=== PATIENT | male | born 1975 | race Caucasian/White ===

== ENCOUNTER 2016-05-16 16:26 | Outpatient (CLI) | payer OTHER | END 2016-05-16 16:27 | disposition home or self-care (01) | DX: Z01.89 Encounter for other specified special examinations (principal) ==

== ENCOUNTER 2023-05-21 14:24 | Emergency (ER) | payer MEDICAID, OTHER ==
[2023-05-21 14:49] LABS: BASOPHILS # (AUTO) 0.1 10^3/uL (0.0-0.1); BASOPHILS % (AUTO) 0.9 %; EOSINOPHILS % (AUTO) 0.4 %; HGB - HEMOGLOBIN 14.3 g/dL (14.0-18.0); LYMPHOCYTES # (AUTO) 2.1 10^3/uL (1.5-3.5); LYMPHOCYTES % (AUTO) 32.1 %; MEAN CORPUSCULAR HEMOGLOBIN 34.8 pg (27.0-31.0); MEAN CORPUSCULAR VOLUME 102.2 fL (80.0-94.0); MONOCYTES # (AUTO) 0.6 10^3/uL (0.0-1.0); MONOCYTES % (AUTO) 8.7 %; NEUTROPHILS # (AUTO) 3.8 10^3/uL (1.5-6.6); NEUTROPHILS % (AUTO) 57.5 %; PLT - PLATELET COUNT 254 10^3/uL (130-450); RED BLOOD COUNT 4.11 10^6/uL (4.70-6.10); RED CELL DISTRIBUTION WIDTH 13.2 % (12.0-15.0); WHITE BLOOD COUNT 6.7 x10^3/uL (4.8-10.8)
[2023-05-21 15:03] LABS: ALBUMIN 3.7 g/dL (3.2-5.5); BILIRUBIN,TOTAL 1.2 mg/dL (0.2-1.0); CALCIUM 8.8 mg/dL (8.5-10.3); CREATININE 0.8 mg/dL (0.6-1.3); POTASSIUM 3.7 mmol/L (3.5-4.5); TOTAL PROTEIN 7.3 g/dL (6.4-8.9)
[2023-05-21 15:52] LABS: BILIRUBIN,URINE NEGATIVE (NEGATIVE); GLUCOSE, URINE (UA) NEGATIVE (NEGATIVE); KETONES,URINE (UA) NEGATIVE (NEGATIVE); LEUKOCYTE ESTERASE, URINE NEGATIVE (NEGATIVE); NITRITE,URINE NEGATIVE (NEGATIVE); OCCULT BLOOD,URINE NEGATIVE (NEGATIVE); PH,URINE 7.5 PH (5.0-7.5); PROTEIN,URINE NEGATIVE (NEGATIVE); UROBILINOGEN,URINE 4 E.U./dL (NORMAL)
[2023-05-21 15:53] LABS: CLARITY,URINE CLEAR (CLEAR)
[2023-05-21] MEDS ORDERED: iohexoL-300 100 ML VIAL ONE (16:44)
[2023-05-21] MEDS: SODIUM CHLORIDE 0.9% 1,000 ML IV ONE (17:02)
[2023-05-21] MEDS: ONDANSETRON 4 MG/2 ML VIAL IVP STA (17:05)
[2023-05-21] MEDS: iohexoL-300 100 ML VIAL IVP ONE (17:55)
--- NOTE | 2023-05-21 18:14 | CT Report ---
PROCEDURE: Abdomen/Pelvis W INDICATIONS: RUQ pain CONTRAST: 100ml omni 300 TECHNIQUE: After the administration of intravenous contrast, a CT scan of the abdomen and pelvis was performed. Images were recorded and evaluated at appropriate window settings. Reformats: coronal and sagittal. F or radiation dose reduction, the following was used: automated exposure control, adjustment of mA and /or kV according to patient size. COMPARISON: None. FINDINGS: Image quality: Diagnostic. Lower chest: Please see same day CT. Liver: Severe hepatic steatosis. 1.5 cm lesion with discontinuous, peripheral arterial enhancement in segment 2, presumably a hemangioma. Smooth liver contour. Patent portal vein. Gallbladder and biliary tree: No radiopaque stones or wall thickening. No biliary dilation. Spleen: No splenomegaly. Pancreas: No pancreatic ductal dilation. No fat stranding. Adrenals: No adrenal nodule. Kidneys and ureters: No hydronephrosis. No renal cystic lesion which requires follow up. No solid mas s. Stomach, bowel and peritoneum: No bowel distension. No pathologic free fluid. Normal appendix. Coloni c diverticulosis without evidence of diverticulitis. Lymph nodes: Borderline enlarged gastrohepatic lymph nodes, largest measuring 1 cm short axis (series 2, image 36). Vessels: No infrarenal aortic aneurysm. PELVIS Reproductive organs: Unremarkable. Bladder: No abnormal wall thickening, accounting for underdistention. Pelvic lymph nodes: No pelvic adenopathy by size criteria. Bones: No aggressive osseous abnormality. Other: No significant ventral or inguinal hernia. IMPRESSION: No gallbladder or pancreatic pathology. Marked hepatic steatosis, probably steatohepatitis. Prominent gastrohepatic lymph nodes, possibly reactive to liver disease or gastritis. Recommend follo w-up in 2-3 months to ensure resolution, otherwise further workup with GI should be considered. 1.5 cm liver lesion with imaging properties favoring a benign hemangioma. However, given underlying l iver disease, further evaluation with outpatient MRI is recommended (liver mass protocol). Reviewed by: Luis Angel Pierson MD on 05/21/2023 6:12 PM [facility] [[email or web address]] Approved by: Luis Angel Pierson MD on 05/21/2023 6:12 PM PST Station ID: [id number]
--- NOTE | 2023-05-21 18:18 | CT Report ---
PROCEDURE: Chest W INDICATIONS: abdominal pain CONTRAST: 100ml omni 300 TECHNIQUE: After the administration of intravenous contrast, a CT scan of the chest was performed. Images were recorded and evaluated at appropriate window settings. Reformats: axial MIP of the chest, coronal and sagittal. For radiation dose reduction, the following was used: automated exposure control, adjustme nt of mA and/or kV according to patient size. COMPARISON: None. FINDINGS: Image quality: Suboptimal due to motion artifact. Chest wall and lower neck: No thyroid nodule which requires sonographic follow up. No axillary or sup raclavicular adenopathy by size. Lungs and pleura: No consolidation. No pleural effusions. No pneumothorax. No suspicious pulmonary n odules which require follow up. Mediastinum: Heart size is normal. No pericardial effusion. No large vessel abnormality. No mediastin al adenopathy by size criteria. Circumferential thickening of the mid to distal esophagus, with a sm all hiatal hernia. Adjacent prominent lymph nodes are present, not enlarged by size criteria. Bones: No aggressive osseous abnormality. Upper Abdomen: Unremarkable. IMPRESSION: Suboptimal evaluation due to motion artifact. Circumferential thickening of the mid to distal esophagus, associated small hiatal hernia and adjacen t prominent lymph nodes. Findings suggest esophagitis. Given the presence of enlarged lymph nodes in the upper abdomen, GI referral is recommended for endoscopic evaluation to exclude malignancy. Reviewed by: Luis Angel Pierson MD on 05/21/2023 6:16 PM PST Approved by: Luis Angel Pierson MD on 05/21/2023 6:16 PM PST Station ID: [id number]
--- NOTE | 2023-05-21 19:21 | ED Physician Documentation ---
PD HPI ABD PAIN - Stated complaint Stated Complaint: NAUSEA,NOT EATING - Chief complaint Chief Complaint: Abd Pain - Additional information Additional information: 48-year-old ill-appearing male presents emergency department for generalized m alaise, dizziness, abdominal pain. Patient says that he has no significant pertinent past medical history. Patient reports that he has been having ongoing abdominal pain discomfort and not to the point inability to eat now for the last 3 to 4 months. Patient reports that significantly over the last month that has gotten more severe. Patient reports today he was chasing after his dog he ran a very short period of time and was unable to keep his dog to the point where he felt like he almost collapsed because of how fatigued he was feeling when he was running. He endorses and frequent episodes of nausea vomiting, unintentional weight loss over the last month about 10 pounds. Patient reports that anytime he eats or drinks as well as anything he throws it up almost immediately. He says that he feels inflamed from his esophagus to his rectum. He does inform me that he drinks quite heavily hard alcohol at least 4-5 drinks a day he has not had a drink in about 12 hours and he does appear to be quite tremulous. PD PAST MEDICAL HISTORY - Past Medical History Past Medical History: No - Past Surgical History Past Surgical History: No - Present Medications Home Medications: Ambulatory Orders Medication Instructions Recorded Confirmed Famotidine [Zantac-360 20 mg PO DAILY #30 tablet 05/21/23 (Famotidine)] ONDANSETRON ODT Prepack 2 [ZOFRAN 4 mg TL Q6H PRN #30 tablet 05/21/23 ODT Prepack 2] - Allergies Allergies/Adverse Reactions: Allergies Allergy/AdvReac Type Severity Reaction Status Date / Time No Known Drug Allergies Allergy Verified 05/21/23 14:34 - Social History Does the pt smoke?: No Smoking Status: Never smoker PD ED PE NORMAL - Vitals Vital signs reviewed: Yes - General General: Alert and oriented X 3, No acute distress, Other (Cachectic) - HEENT HEENT: Atraumatic, PERRL, EOMI - Cardiac Cardiac: No murmur, No gallop (Tachycardia), Other - Respiratory Respiratory: No respiratory distress, Clear bilaterally - Abdomen Abdomen: Normal bowel sounds, Soft, Non tender, Non distended, No organomegaly - Derm Derm: Normal color, Warm and dry, No rash - Neuro Neuro: Alert and oriented X 3, hand leather trimmer 2-12 intact, No motor deficit, Normal speech, Other (Hand tremors) Eye Opening: Spontaneous Motor: Obeys Commands Verbal: Oriented GCS Score: 15 - Psych Psych: Normal mood, Other (Tearful affect) Results - Vitals Vitals: Vital Signs - 24 hr 05/21/23 05/21/23 05/21/23 14:32 17:06 19:00 Temperature 36.7 C 36.7 C 98.1 C H Heart Rate 135 H 94 97 Respiratory 18 20 19 Rate Blood Pressure 105/73 114/83 H 109/79 O2 Saturation 100 97 95 Oxygen O2 Source Room air - Labs Labs: Laboratory Tests 05/21/23 05/21/23 05/21/23 14:41 14:41 15:35 WBC 6.7 RBC 4.11 L Hgb 14.3 Hct 42.0 MCV 102.2 H MCH 34.8 H MCHC 34.0 RDW 13.2 Plt Count 254 MPV 9.0 Neut # (Auto) 3.8 Lymph # (Auto) 2.1 [place] # (Auto) 0.6 Eos # (Auto) 0.0 Baso # (Auto) 0.1 Absolute Nucleated RBC 0.00 Nucleated RBC % 0.0 Sodium 138 Potassium 3.7 Chloride 99 L Carbon Dioxide 27 Anion Gap 12.0 BUN 4 L Creatinine 0.8 Estimated GFR (MDRD) 102 Glucose 113 H Calcium 8.8 Total Bilirubin 1.2 H AST 125 H ALT 53 Alkaline Phosphatase 147 H Total Protein 7.3 Albumin 3.7 Globulin 3.6 Albumin/Globulin Ratio 1.0 Lipase 53 Urine Color YELLOW Urine Clarity CLEAR Urine pH 7.5 Ur Specific [place] 1.010 Urine Protein NEGATIVE Urine Glucose (UA) NEGATIVE Urine Ketones NEGATIVE Urine Occult Blood NEGATIVE Urine Nitrite NEGATIVE Urine Bilirubin NEGATIVE Urine Urobilinogen 4 H Ur Leukocyte Esterase NEGATIVE Ur Microscopic Review NOT INDICATED Urine Culture Comments NOT INDICATED - Rads (name of study) CT chest on pelvis with Relevant Findings:: Final report received, EMP independent interpretation of test, Other (Circumferential thickening of the mid to distal esophagus with small hiatal hernia and prominent lymph nodes. Esophagitis. Enlarged lymph nodes of the upper abdomen. Hepatic steatosis, 1.5 cm liver lesion) PD Medical Decision Making - ED course ED course: 48-year-old male presents emergency department for generalized malaise and abdominal pain. Labs do not reveal any leukocytosis he does appear to have macrocytic anemia, MCV 102.2, RBC 4.11, MCH 34.8. Chemistry does not reveal any significant electrolyte abnormalities aside from, T. bili 1.2, AST 125, alk phos 147. Urinalysis also complete positive for urobilinogen, no leukocytes no WBCs no nitrites. CT chest abdomen pelvis complete with contrast: CT chest radiology notes that unfortunately it was suboptimal evaluation as patient was moving. He does appear to have some circumferential thickening of the mid to distal esophagus as well as a small hiatal hernia with prominent lymph nodes and esophagitis. CT abdomen pelvis with contrast reveals significant hepatic steatosis with enlarged lymph nodes, 1.5 cm liver lesion. Patient reports after he received 1 L IV fluid as well as Zofran for the first time in a long time he actually has an adequate appetite he is feeling very hungry and thirsty. He says since he has been here he is starting to feel significantly better. Patient was informed of his CT results was also given to him in his discharge paperwork it was stressed the importance that he follow-up with primary care provider for GI referral and to pursue an endoscopy colonoscopy. Patient was also strongly encouraged that he needs to cut back on his alcohol to the point where he is no longer drinking due to his hepatic steatosis. A prescription of Zofran and famotidine was sent to his preferred pharmacy he is able to keep down fluids and food while he is here in the emergency department prior to discharge. He was given strict ER return precautions and told to call his primary care provider to see if he is able to get on the cancellation list to get in sooner with them. Departure - Departure Disposition: 01 Home, Self Care Clinical Impression: Esophagitis, Steatosis, liver, Transaminitis Alcohol dependence Qualifiers: Substance use status: uncomplicated Qualified Code(s): F10.20 - Alcohol dependence, uncomplicated Instructions: Addiction Alcohol Prescriptions: Famotidine [Zantac-360 (Famotidine)] 20 mg PO DAILY #30 tablet ONDANSETRON ODT Prepack 2 [ZOFRAN ODT Prepack 2] 4 mg TL Q6H PRN #30 tablet PRN Reason: Nausea / Vomiting Comments: Thank you for trusting us with your care. I have sent a prescription of famotidine which is an antacid medication as well as Zofran to your preferred pharmacy [facility] in [place]. Please follow-up with your primary care provider for your scheduled appointment and talk to them about today's findings. I also would really strongly encourage you to cut back on your drinking to the point where you are not drinking at all anymore. Need to follow-up with a GI specialist which your primary care provider can put a referral in for for possible scope. Please come back to the emergency department if you are having any worsening abdominal pain, nausea vomiting that is not controlled with Zofran, or any other concerning symptoms. See below for the CT scan and imaging results. IMPRESSION: Suboptimal evaluation due to motion artifact. Circumferential thickening of the mid to distal esophagus, associated small hiatal hernia and adjacent prominent lymph nodes. Findings suggest esophagitis. Given the presence of enlarged lymph nodes in the upper abdomen, GI referral is recommended for endoscopic evaluation to exclude malignancy. No gallbladder or pancreatic pathology. Marked hepatic steatosis, probably steatohepatitis. Prominent gastrohepatic lymph nodes, possibly reactive to liver disease or gastritis. Recommend follow-up in 2-3 months to ensure resolution, otherwise further workup with GI should be considered. 1.5 cm liver lesion with imaging properties favoring a benign hemangioma. However, given underlying liver disease, further evaluation with outpatient MRI is recommended (liver mass protocol). Forms: PCP List Discharge Date/Time: 05/21/23 19:30
[2023-05-21 19:38] VITALS: BP 109/79; O2SAT 95
[2023-05-21] MEDS: GI COCKTAIL 120 ML BOTTLE PO STA (20:01)
[2023-05-21] MEDS: MAG HYDROX/AL HYDROX/SIMETH 30 ML UDC PO STA (20:03)
== END 2023-05-21 19:30 | disposition home or self-care (01) ==
LOC: ED 14:24
DX: K20.90 Esophagitis, unspecified without bleeding (principal); K76.0 Fatty (change of) liver, not elsewhere classified; R74.01 Elevation of levels of liver transaminase levels; F10.20 Alcohol dependence, uncomplicated
CPT/HCPCS: 36415; 71260; 74177; 80053; 81003; 83690; 85025; 96361; 96374; 99284; A9270; Q9967; 81001; 87086

== ENCOUNTER 2023-12-05 09:26 | Emergency (ER) | payer MEDICAID ==
--- NOTE | 2023-12-05 10:03 | ED Physician Documentation ---
PD HPI ABD PAIN - Stated complaint Stated Complaint: VOMITTING BLOOD,ABD PX,BLOATING - Chief complaint Chief Complaint: Abd Pain - History obtained from History obtained from: Patient - History of Present Illness Timing - onset: How many weeks ago (The patient with history of alcoholic cirrhosis and has been referred to hepatology at the [facility] which she has an appointment in a few weeks. Has GI at [facility] as well. Notable increase in general fatigue, nausea, abdominal distention and now jaundice over just the past 2 to 3 weeks.) Timing - duration: Weeks (1-2) Timing - details: Gradual onset Quality: Fullness/distended Location: All over / everywhere Improved by: No: Vomiting Worsened by: Eating Associated symptoms: Nausea, Vomiting (just the past 1-2 days, with some noted hematemesis red blood twice.). 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 Will refer to hepatology. Patient states he has not had any alcohol in over a month. EGD done for 5 months ago that showed gastritis without any apparent varices.) Review of Systems Constitutional: reports: Myalgias, Fatigue. denies: Fever, Chills Cardiac: denies: Chest pain / pressure Respiratory: denies: Dyspnea, Cough GI: reports: Vomiting. denies: Diarrhea PD PAST MEDICAL HISTORY - Past Medical History Past Medical History: Yes GI: Cirrhosis - Past Surgical History Past Surgical History: No - Present Medications Home Medications: Ambulatory Orders Medication Instructions Recorded Confirmed ONDANSETRON ODT Prepack 2 [ZOFRAN 4 mg TL Q6H PRN #30 tablet 05/21/23 12/05/23 ODT Prepack 2] Pantoprazole [Protonix] 1 tab PO DAILY 12/05/23 12/05/23 - Allergies Allergies/Adverse Reactions: Allergies Allergy/AdvReac Type Severity Reaction Status Date / Time No Known Drug Allergies Allergy Verified 12/05/23 09:37 - Social History Does the pt smoke?: No Smoking Status: Never smoker Does the pt drink ETOH?: No - Immunizations Immunizations are current?: Yes - POLST Patient has POLST: No PD ED PE NORMAL - Vitals Vital signs reviewed: Yes - General General: Alert and oriented X 3, Well developed/nourished - HEENT HEENT: Pharynx benign - Neck Neck: Supple, no meningeal sign, No adenopathy - Cardiac Cardiac: RRR, No murmur - Respiratory Respiratory: No respiratory distress, Clear bilaterally - Abdomen Abdomen: Other (The liver is markedly enlarged to palpation and percussion. There is only mild tenderness over the liver. General ascites with moderate tenseness of the abdomen. No percussion tenderness. Bowel sounds are decreas ed.). No: Normal bowel sounds (decreased) - Derm Derm: Warm and dry. No: Normal color (markedly jaundice) - Neuro Neuro: Alert and oriented X 3, No motor deficit, Normal speech Results - Vitals Vitals: Vital Signs - 24 hr 12/05/23 12/05/23 12/05/23 09:32 10:07 10:30 Temperature 36.4 C L Heart Rate 96 90 79 Respiratory 20 10 L 16 Rate Blood Pressure 114/67 113/64 107/66 O2 Saturation 97 99 99 If not protocol : Oxygen Flow, liters/minute 12/05/23 12/05/23 12/05/23 11:30 12:00 12:30 Temperature Heart Rate 83 78 75 Respiratory 14 16 14 Rate Blood Pressure 111/70 97/51 L 103/58 L O2 Saturation 96 98 95 If not protocol : Oxygen Flow, liters/minute 12/05/23 12/05/23 12/05/23 13:00 13:30 14:00 Temperature Heart Rate 62 69 71 Respiratory 10 L 10 L 16 Rate Blood Pressure 102/58 L 98/61 102/58 L O2 Saturation 95 96 94 If not protocol : Oxygen Flow, liters/minute 12/05/23 12/05/23 12/05/23 14:30 15:00 15:30 Temperature Heart Rate 70 86 70 Respiratory 14 12 14 Rate Blood Pressure 100/56 L 97/51 L 101/55 L O2 Saturation 96 99 99 If not protocol : Oxygen Flow, liters/minute 12/05/23 12/05/23 12/05/23 16:00 16:30 17:00 Temperature Heart Rate 73 64 63 Respiratory 16 14 14 Rate Blood Pressure 93/61 95/63 95/58 L O2 Saturation 94 97 98 If not protocol : Oxygen Flow, liters/minute 12/05/23 12/05/23 12/05/23 17:30 18:00 18:30 Temperature Heart Rate 77 64 72 Respiratory 12 12 12 Rate Blood Pressure 98/70 100/50 L 104/58 L O2 Saturation 100 98 98 If not protocol : Oxygen Flow, liters/minute 12/05/23 12/05/23 19:27 19:43 Temperature Heart Rate 84 76 Respiratory 18 18 Rate Blood Pressure 111/62 123/73 O2 Saturation 97 If not protocol 97 : Oxygen Flow, liters/minute Oxygen O2 Source Room air - Labs Labs: Microbiology 12/05/23 13:03 Body Fluid Culture - Preliminary Peritoneal Fluid Laboratory Tests 12/05/23 12/05/23 12/05/23 09:50 09:50 09:50 WBC 16.0 H RBC 3.62 L Hgb 12.4 L Hct 36.1 L MCV 99.7 H MCH 34.3 H MCHC 34.3 RDW 17.7 H Plt Count 373 MPV 10.5 Neut # (Auto) Not Reportable Lymph # (Auto) Not Reportable [place] # (Auto) Not Reportable Eos # (Auto) Not Reportable Baso # (Auto) Not Reportable Absolute Nucleated RBC Not Reportable Total Counted 100 Band Neuts % (Manual) 3 Abnorm Lymph % (Manual) 0 Nucleated RBC % Not Reportable Neutrophils # (Manual) 13.1 H Lymphocytes # (Manual) 0.6 L Monocytes # (Manual) 2.1 H Eosinophils # (Manual) 0.0 Basophils # (Manual) 0.2 H Differential Comment MANUAL DIFFERENTIAL Manual Slide Review Indicated WBC Morphology 1+ TOXIC GRANULATION Platelet Estimate NORMAL (130-450,000) Platelet Morphology NORMAL APPEARANCE RBC Morph Micro Appear 1+ MACROCYTOSIS PT 22.5 H INR 2.2 H Sodium 127 L Potassium 3.6 Chloride 89 L Carbon Dioxide 25 Anion Gap 13.0 BUN 21 H Creatinine 5.4 H Estimated GFR (MDRD) 11 L Glucose 107 H Calcium 8.6 Magnesium 3.3 H Total Bilirubin > 30.0 H AST 123 H ALT 49 Alkaline Phosphatase 159 H Ammonia Total Protein 6.3 L Albumin 2.8 L Globulin 3.5 Albumin/Globulin Ratio 0.8 L Lipase 39 Urine Color Urine Clarity Urine pH Ur Specific [place] Urine Protein Urine Glucose (UA) Urine Ketones Urine Occult Blood Urine Nitrite Urine Bilirubin Urine Urobilinogen Ur Leukocyte Esterase Urine RBC Urine WBC Ur Squamous Epith Cells Urine Bacteria Urine Casts Urine Sperm Ur Microscopic Review Urine Culture Comments Fluid Source Fluid Color Fluid Clarity Fluid WBC Fluid RBC Fluid Neutrophils % Fluid Lymphocytes % Fluid Monocytes % Fluid Macrophages % Fld Mesothelial Cell % Nasal Adenovirus (PCR) Nasal B. parapertussis DNA (PCR) Nasal Coronavir 229E PCR Nasal Coronavir HKU1 PCR Nasal Coronavir NL63 PCR Nasal Coronavir OC43 PCR Nasal Enterovir/Rhinovir PCR Nasal Influenza B PCR Nasal Influenza A PCR Nasal Parainfluen 1 PCR Nasal Parainfluen 2 PCR Nasal Parainfluen 3 PCR Nasal Parainfluen 4 PCR Nasal RSV (PCR) Nasal B.pertussis DNA PCR Nasal C.pneumoniae (PCR) Hiram Human Metapneumo PCR Nasal M.pneumoniae (PCR) Nasal SARS-CoV-2 (PCR) Blood Type Blood Type Recheck Antibody Screen 12/05/23 12/05/23 12/05/23 09:50 10:44 10:44 WBC RBC Hgb Hct MCV MCH MCHC RDW Plt Count MPV Neut # (Auto) Lymph # (Auto) [place] # (Auto) Eos # (Auto) Baso # (Auto) Absolute Nucleated RBC Total Counted Band Neuts % (Manual) Abnorm Lymph % (Manual) Nucleated RBC % Neutrophils # (Manual) Lymphocytes # (Manual) Monocytes # (Manual) Eosinophils # (Manual) Basophils # (Manual) Differential Comment Manual Slide Review WBC Morphology Platelet Estimate Platelet Morphology RBC Morph Micro Appear PT INR Sodium Potassium Chloride Carbon Dioxide Anion Gap BUN Creatinine Estimated GFR (MDRD) Glucose Calcium Magnesium Total Bilirubin AST ALT Alkaline Phosphatase Ammonia 54.3 Total Protein Albumin Globulin Albumin/Globulin Ratio Lipase Urine Color Urine Clarity Urine pH Ur Specific [place] Urine Protein Urine Glucose (UA) Urine Ketones Urine Occult Blood Urine Nitrite Urine Bilirubin Urine Urobilinogen Ur Leukocyte Esterase Urine RBC Urine WBC Ur Squamous Epith Cells Urine Bacteria Urine Casts Urine Sperm Ur Microscopic Review Urine Culture Comments Fluid Source Fluid Color Fluid Clarity Fluid WBC Fluid RBC Fluid Neutrophils % Fluid Lymphocytes % Fluid Monocytes % Fluid Macrophages % Fld Mesothelial Cell % Nasal Adenovirus (PCR) Nasal B. parapertussis DNA (PCR) Nasal Coronavir 229E PCR Nasal Coronavir HKU1 PCR Nasal Coronavir NL63 PCR Nasal Coronavir OC43 PCR Nasal Enterovir/Rhinovir PCR Nasal Influenza B PCR Nasal Influenza A PCR Nasal Parainfluen 1 PCR Nasal Parainfluen 2 PCR Nasal Parainfluen 3 PCR Nasal Parainfluen 4 PCR Nasal RSV (PCR) Nasal B.pertussis DNA PCR Nasal C.pneumoniae (PCR) Hiram Human Metapneumo PCR Nasal M.pneumoniae (PCR) Nasal SARS-CoV-2 (PCR) Blood Type A NEGATIVE Blood Type Recheck A NEGATIVE Antibody Screen NEGATIVE 12/05/23 12/05/23 12/05/23 11:30 11:50 13:03 WBC RBC Hgb Hct MCV MCH MCHC RDW Plt Count MPV Neut # (Auto) Lymph # (Auto) [place] # (Auto) Eos # (Auto) Baso # (Auto) Absolute Nucleated RBC Total Counted Band Neuts % (Manual) Abnorm Lymph % (Manual) Nucleated RBC % Neutrophils # (Manual) Lymphocytes # (Manual) Monocytes # (Manual) Eosinophils # (Manual) Basophils # (Manual) Differential Comment Manual Slide Review WBC Morphology Platelet Estimate Platelet Morphology RBC Morph Micro Appear PT INR Sodium Potassium Chloride Carbon Dioxide Anion Gap BUN Creatinine Estimated GFR (MDRD) Glucose Calcium Magnesium Total Bilirubin AST ALT Alkaline Phosphatase Ammonia Total Protein Albumin Globulin Albumin/Globulin Ratio Lipase Urine Color BROWN Urine Clarity CLOUDY Urine pH Ur Specific [place] Urine Protein Urine Glucose (UA) Urine Ketones Urine Occult Blood Urine Nitrite Urine Bilirubin COLOR INTERFERENCE Urine Urobilinogen Ur Leukocyte Esterase Urine RBC 6-10 H Urine WBC >25 H Ur Squamous Epith Cells NONE SEEN Urine Bacteria Rare Urine Casts 11-25 Hyaline Casts Urine Sperm PRESENT Ur Microscopic Review INDICATED Urine Culture Comments NOT INDICATED Fluid Source ASCITES Fluid Color STRAW Fluid Clarity CLEAR Fluid WBC 57 Fluid RBC < 3000 Fluid Neutrophils % 10 Fluid Lymphocytes % 11 Fluid Monocytes % 32 Fluid Macrophages % 34 Fld Mesothelial Cell % 13 Nasal Adenovirus (PCR) NOT DETECTED Nasal B. parapertussis DNA (PCR) NOT DETECTED Nasal Coronavir 229E PCR NOT DETECTED Nasal Coronavir HKU1 PCR NOT DETECTED Nasal Coronavir NL63 PCR NOT DETECTED Nasal Coronavir OC43 PCR NOT DETECTED Nasal Enterovir/Rhinovir PCR NOT DETECTED Nasal Influenza B PCR NOT DETECTED Nasal Influenza A PCR NOT DETECTED Nasal Parainfluen 1 PCR NOT DETECTED Nasal Parainfluen 2 PCR NOT DETECTED Nasal Parainfluen 3 PCR NOT DETECTED Nasal Parainfluen 4 PCR NOT DETECTED Nasal RSV (PCR) NOT DETECTED Nasal B.pertussis DNA PCR NOT DETECTED Nasal C.pneumoniae (PCR) NOT DETECTED Hiram Human Metapneumo PCR NOT DETECTED Nasal M.pneumoniae (PCR) NOT DETECTED Nasal SARS-CoV-2 (PCR) NOT DETECTED Blood Type Blood Type Recheck Antibody Screen 12/05/23 12/05/23 15:45 15:45 WBC RBC Hgb 11.1 L Hct 32.6 L MCV MCH MCHC RDW Plt Count MPV Neut # (Auto) Lymph # (Auto) [place] # (Auto) Eos # (Auto) Baso # (Auto) Absolute Nucleated RBC Total Counted Band Neuts % (Manual) Abnorm Lymph % (Manual) Nucleated RBC % Neutrophils # (Manual) Lymphocytes # (Manual) Monocytes # (Manual) Eosinophils # (Manual) Basophils # (Manual) Differential Comment Manual Slide Review WBC Morphology Platelet Estimate Platelet Morphology RBC Morph Micro Appear PT INR Sodium 128 L Potassium 4.0 Chloride 93 L Carbon Dioxide 24 Anion Gap 11.0 BUN 22 H Creatinine 5.5 H Estimated GFR (MDRD) 11 L Glucose 122 H Calcium 8.2 L Magnesium Total Bilirubin 27.5 H AST 107 H ALT 42 Alkaline Phosphatase 133 H Ammonia Total Protein 5.4 L Albumin 2.4 L Globulin 3.0 Albumin/Globulin Ratio 0.8 L Lipase 24 Urine Color Urine Clarity Urine pH Ur Specific [place] Urine Protein Urine Glucose (UA) Urine Ketones Urine Occult Blood Urine Nitrite Urine Bilirubin Urine Urobilinogen Ur Leukocyte Esterase Urine RBC Urine WBC Ur Squamous Epith Cells Urine Bacteria Urine Casts Urine Sperm Ur Microscopic Review Urine Culture Comments Fluid Source Fluid Color Fluid Clarity Fluid WBC Fluid RBC Fluid Neutrophils % Fluid Lymphocytes % Fluid Monocytes % Fluid Macrophages % Fld Mesothelial Cell % Nasal Adenovirus (PCR) Nasal B. parapertussis DNA (PCR) Nasal Coronavir 229E PCR Nasal Coronavir HKU1 PCR Nasal Coronavir NL63 PCR Nasal Coronavir OC43 PCR Nasal Enterovir/Rhinovir PCR Nasal Influenza B PCR Nasal Influenza A PCR Nasal Parainfluen 1 PCR Nasal Parainfluen 2 PCR Nasal Parainfluen 3 PCR Nasal Parainfluen 4 PCR Nasal RSV (PCR) Nasal B.pertussis DNA PCR Nasal C.pneumoniae (PCR) Hiram Human Metapneumo PCR Nasal M.pneumoniae (PCR) Nasal SARS-CoV-2 (PCR) Blood Type Blood Type Recheck Antibody Screen - Rads (name of study) abd/pelvic CT Relevant Findings:: Prelim report reviewed (Hepatomegaly and cirrhosis with new moderate ascites. No other acute findings.), EMP independent interpretation of test Procedures - Paracentesis - Major Preparation: Consent obtained, Ultrasound guidance, Sterile prep and drape, Local anesthesia Location: RLQ Technique: Catheter over needle Fluid: Clear, Sent for cell count, Sent for gram stain, Sent for culture, Volume - enter cc (2700) Aftercare: No complications, Patient tolerated well, Dressing applied PD Medical Decision Making - ED course Complexity details: reviewed results (The patient is obviously visibly jaundiced. His bilirubin level is initially higher than 30 which is as high as our lab reports. Creatinine is also significantly elevated at 5.4. Apparent acute hepatorenal syndrome. The patient has new onset ascites as well that is very uncomfortable.), considered differential, d/w patient, d/w family ED course: prior alcoholic cirrhosis but has not had notable ascites, no prior jaundice, nor abd pain until the past 2-3 weeks. Had COIVD 4 weeks ago and continued weakness/nausea. Now with 1 week of quickly progresssing jaundic, less urination, weakness, and abd bloating/tightness. CLinically very jaundice. Labs showing acute hepatic failure with bili over 30, and also renal failure with creatinine 5.4. Prior in our system was 0.8. Acute heaptorenal syndrome. I talked with GI at and refers to G[employer]ing [employer] Manager. Pending call back from that specialist at time of shift change. Had been awhile to get initial calls back froM . Pt with prolonged ED stay due to awaiting bed available at other facilities. Patient with high MELD score of approx 40, so high mortaility with current labs/findings. - Critical Care Time(min): 60 Time Includes: Direct patient care, Reassess patient, Document care, Coordinate care, Medical consult Data interpretation: Labs, CXR Departure - Departure Disposition: 02 Transfer Acute Care Hosp Clinical Impression: ANTHONY (acute kidney injury), Hepatorenal syndrome with acute kidney injury, Cirrhosis of liver, Post covid-19 condition, unspecified, Hematemesis Condition: Stable Record reviewed to determine appropriate education?: Yes Forms: PCP List
[2023-12-05 10:26] LABS: BASOPHILS % (AUTO) 0.3 %; EOSINOPHILS % (AUTO) 0.2 %; HCT - HEMATOCRIT 36.1 % (42.0-52.0); HGB - HEMOGLOBIN 12.4 g/dL (14.0-18.0); LYMPHOCYTES % (AUTO) 7.6 %; MEAN CORPUSCULAR HEMOGLOBIN 34.3 pg (27.0-31.0); MEAN CORPUSCULAR HGB CONC 34.3 g/dL (32.0-36.0); MEAN CORPUSCULAR VOLUME 99.7 fL (80.0-94.0); MEAN PLATELET VOLUME 10.5 fL (7.4-11.4); MONOCYTES % (AUTO) 13.1 %; NEUTROPHILS % (AUTO) 77.7 %; PLT - PLATELET COUNT 373 10^3/uL (130-450); RED BLOOD COUNT 3.62 10^6/uL (4.70-6.10); RED CELL DISTRIBUTION WIDTH 17.7 % (12.0-15.0)
[2023-12-05 10:27] LABS: SLIDE REVIEW? Indicated
[2023-12-05] MEDS: ONDANSETRON 4 MG/2 ML VIAL IVP STA ×2 (10:27→19:53)
[2023-12-05 10:28] LABS: ABNORMAL LYMPHS % (MANUAL) 0 %
[2023-12-05] MEDS: SODIUM CHLORIDE 0.9% 1,000 ML IV STA ×4 (10:28→16:37)
[2023-12-05] MEDS: KETOROLAC 15 MG/ML VIAL IVP STA (10:28)
[2023-12-05 10:47] LABS: MAGNESIUM 3.3 mg/dL (1.7-2.3)
[2023-12-05 10:50] LABS: BAND NEUTROPHILS % (MANUAL) 3 %; BASOPHILS # (MANUAL) 0.2 10^3/uL (0-0.1); BASOPHILS % (MANUAL) 1 %; LYMPHOCYTES # (MANUAL) 0.6 10^3/uL (1.5-3.5); LYMPHOCYTES % (MANUAL) 4 %; MONOCYTES # (MANUAL) 2.1 10^3/uL (0.0-1.0); NEUTROPHILS # (MANUAL) 13.1 10^3/uL (1.5-6.6)
[2023-12-05 10:58] LABS: PLATELET ESTIMATE, MANUAL NORMAL (130-450,000) (NORMAL); PLATELET MORPHOLOGY NORMAL APPEARANCE (NORMAL); WBC MORPHOLOGY (MULTIPLE) 1+ TOXIC GRANULATION (NORMAL)
[2023-12-05 10:59] LABS: DIFFERENTIAL COMMENT MANUAL DIFFERENTIAL
[2023-12-05 11:06] LABS: BILIRUBIN,TOTAL > 30.0 mg/dL (0.2-1.0); CREATININE 5.4 mg/dL (0.6-1.3); GFR - MDRD 11 (>89); LIPASE 39 U/L (11-82)
[2023-12-05 11:08] LABS: ALBUMIN 2.8 g/dL (3.2-5.5); ALBUMIN/GLOBULIN RATIO 0.8 (1.0-2.2); ALKALINE PHOSPHATASE 159 IU/L (42-121); ALT ALANINE AMINOTRANSFERASE 49 IU/L (10-60); AST ASPARTATE AMINOTRANSFERASE 123 IU/L (10-42); BUN - BLOOD UREA NITROGEN 21 mg/dL (6-20); CALCIUM 8.6 mg/dL (8.5-10.3); CARBON DIOXIDE - CO2 25 mmol/L (21-32); CHLORIDE 89 mmol/L (101-111); GLUCOSE 107 mg/dL (74-104); POTASSIUM 3.6 mmol/L (3.5-4.5); SODIUM 127 mmol/L (135-145); TOTAL PROTEIN 6.3 g/dL (6.4-8.9)
[2023-12-05 11:22] LABS: INR 2.2 (0.8-1.2); PT - PROTHROMBIN TIME 22.5 secs (9.9-12.6)
[2023-12-05 11:54] LABS: CLARITY,URINE CLOUDY (CLEAR)
[2023-12-05 11:58] LABS: BILIRUBIN,URINE COLOR INTERFERENCE (NEGATIVE)
[2023-12-05] MEDS: HYDROmorphone 1 MG/ML CARPUJECT IVP STA (12:13)
[2023-12-05 12:20] LABS: BACTERIA,URINE Rare /HPF (None Seen); SQUAMOUS EPITHELIAL CELL,UR NONE SEEN (<= Few); WBC,URINE >25 /HPF (0-3)
[2023-12-05 12:21] LABS: SPERM,URINE PRESENT
[2023-12-05 12:46] LABS: B. PARAPERTUSSIS- RESP PCR PAN NOT DETECTED; B. PERTUSSIS- RESP PCR PANEL NOT DETECTED; C. PNEUMONIAE- RESP PCR PANEL NOT DETECTED; CORONAVIRUS 229E-RESP PCR NOT DETECTED; CORONAVIRUS HKU1-RESP PCR NOT DETECTED; CORONAVIRUS NL63-RESP PCR NOT DETECTED; CORONAVIRUS OC43-RESP PCR NOT DETECTED; HUMAN METAPNEUMOVIRUS NOT DETECTED; INFLUENZA A- RESP PCR PANEL NOT DETECTED; INFLUENZA B - RESP PCR PANEL NOT DETECTED; M. PNEUMONIAE- RESP PCR PANEL NOT DETECTED; PARAINFLUENZA VIRUS 1 NOT DETECTED; PARAINFLUENZA VIRUS 2 NOT DETECTED; PARAINFLUENZA VIRUS 3 NOT DETECTED; PARAINFLUENZA VIRUS 4 NOT DETECTED; RHINOVIRUS/ENTEROVIRUS NOT DETECTED; RSV- RESP PCR PANEL NOT DETECTED; SARS-CoV-2 -RESP PCR PANEL NOT DETECTED
[2023-12-05 13:46] LABS: CC,BF RBC < 3000 /mm^3; CC,BF WBC 57 /mm^3; LYMPHOCYTES %,BODY FLUID 11 %; NEUTROPHILS %, BF 10 %
[2023-12-05 13:47] LABS: BF CLARITY CLEAR; BF COLOR STRAW; BF SOURCE ASCITES; MACROPHAGES %,BODY FLUID 34 %; MESOTHELIAL %, BF 13 %; MONOCYTES %,BODY FLUID 32 %
--- NOTE | 2023-12-05 14:14 | CT Report ---
PROCEDURE: Abdomen/Pelvis WO INDICATIONS: abd pain, liver failure TECHNIQUE: A CT scan of the abdomen and pelvis was performed without the use of intravenous contrast. Images we re recorded and evaluated at appropriate window settings. Reformats: coronal and sagittal. For radiat ion dose reduction, the following was used: automated exposure control, adjustment of mA and/or kV ac cording to patient size. COMPARISON: 05/21/2023. FINDINGS: Image quality: Diagnostic. Lower chest: There is a moderate hiatal hernia.. Liver: Markedly enlarged and diffusely hypoattenuating with some sparing at the gallbladder fossa. No focal lesion. Gallbladder: Distended without intraluminal stone or definite wall thickening. Biliary tree: No intrahepatic or extrahepatic dilation, accounting for age. Spleen: No splenomegaly. Pancreas: No pancreatic ductal dilation. Adrenals: No adrenal nodule. Kidneys and ureters: No hydronephrosis. No contour-deforming mass. Stomach, bowel and peritoneum: No gastric or small bowel dilation. No abnormal wall thickening. Lymph nodes: No central or retroperitoneal adenopathy. Mesentery: Moderate ascites with edema throughout the mesentery. Vessels: No infrarenal aortic aneurysm. Reproductive organs: Unremarkable. Bladder: Bladder wall thickness is normal, accounting for underdistention. No calcified bladder stone s. Pelvic lymph nodes: No adenopathy by size criteria. Bones: No aggressive osseous abnormality. Other: No significant ventral or inguinal hernia. IMPRESSION: Hepatomegaly and diffuse hepatic hypoattenuation with new moderate ascites, consistent with the given history of liver failure. Hiatal hernia, possibly contributing to the patient's symptoms. Reviewed by: Kori Rea MD on 12/05/2023 1:13 PM [facility]DT Approved by: Kori Rea MD on 12/05/2023 1:13 PM AKDT Station ID: [id number]
[2023-12-05 15:51] LABS: HCT - HEMATOCRIT 32.6 % (42.0-52.0); HGB - HEMOGLOBIN 11.1 g/dL (14.0-18.0)
[2023-12-05 16:04] LABS: ALBUMIN 2.4 g/dL (3.2-5.5); BILIRUBIN,TOTAL 27.5 mg/dL (0.2-1.0); CALCIUM 8.2 mg/dL (8.5-10.3)
[2023-12-05 16:10] LABS: ALBUMIN/GLOBULIN RATIO 0.8 (1.0-2.2); CREATININE 5.5 mg/dL (0.6-1.3); TOTAL PROTEIN 5.4 g/dL (6.4-8.9)
[2023-12-05] MEDS: FUROSEMIDE 20 MG/2 ML VIAL IVP STA (17:16)
[2023-12-05] MEDS: ALBUMIN 25% 12.5 GM/50 ML VIAL IV STA (17:21)
[2023-12-05] MEDS ORDERED: cefTRIAXone 2 GM VIAL ONE (21:14)
[2023-12-05] MEDS: cefTRIAXone 2 GM in SODIUM CHLORIDE 0.9% MINIBAG 100 ML IV STA (21:15)
--- NOTE | 2023-12-05 22:11 | ED Physician Documentation ---
ED Addendum - Addendum Addendum: 12/05/23 22:08 The patient was signed out to me at change of shift by Dr. Justin, pending conversation with hepatology at [facility] and possible transfer. The patient had presented to the emergency department with worsening jaundice, abdominal discomfort and distention, and fatigue since having COVID about 4 weeks ago. This is in the setting of chronic alcoholic liver failure. He also had been found to have white blood cells and some bacteria in his ascites, and was suspected to have spontaneous bacterial peritonitis. He was afebrile here, but found to have a white blood cell count of 16. I discussed the case with Dr. Jasso of hepatology and she stated she did not think the patient would need a liver transplant at this point in time, though if this point if you changed, they could make arrangements for the patient then. She did state that she felt the patient could be transferred to [facility] and treated for his hepatorenal failure. I spoke with Dr. Jose Luis Tony, the on-call hospitalist at [facility] and she did accept the patient in transfer after a full discussion of the patient's presentation, history, and results. I did review the patient's record from his stay in the emergency department here and found that he had not yet received antibiotics so I did order a dose of Rocephin for him. The patient is agreeable to transfer. Final impression: 1. Hepatorenal failure 2. Spontaneous bacterial peritonitis 3. Chronic alcoholic cirrhosis of the liver Disposition: Transfer to [facility] in serious but stable condition.
[2023-12-05 23:29] VITALS: BP 93/56; O2SAT 99
== END 2023-12-05 23:51 | disposition short-term general hospital (02) ==
LOC: ED 09:26
DX: N17.9 Acute kidney failure, unspecified (principal); K65.2 Spontaneous bacterial peritonitis; K70.30 Alcoholic cirrhosis of liver without ascites; K76.7 Hepatorenal syndrome; U09.9 Post COVID-19 condition, unspecified; K92.0 Hematemesis
CPT/HCPCS: 36415; 49082; 74176; 80053; 81001; 82140; 83690; 83735; 85014; 85018; 85025; 85610; 86850; 86900; 86901; 87070; 87205; 87633; 89051; 96365; 96367; 96375; 96376; 99291; J1170; P9047; 81003; 87086